=== PATIENT | male | born 1980 | race Caucasian/White ===

== ENCOUNTER 2016-11-03 20:34 | Emergency (ER) | payer OTHER ==
[~2016-11-03] VITALS: Ht 190.5 cm; Wt 110.9 kg
[2016-11-03 20:39] VITALS: BP 133/87; PULSE 67; RESP 16; O2SAT 100
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
--- NOTE | 2016-11-03 21:23 | DRSVH ---
PROCEDURE: X-RAY LEFT KNEE, THREE VIEWS ([id number]) INDICATIONS: injury TECHNIQUE: 3 views of the knee were acquired. COMPARISON: None. FINDINGS: Bones: No fractures or dislocations. No suspicious bony lesions. Minimal flattening of the right fe moral condylar articular surface. Soft tissues: No joint effusion. No suspicious soft tissue calcifications. IMPRESSION: No acute fractures. Minimal flattening of the right femoral condylar articular surface ma y represent a benign variant or chronic osteochondral injury. Dictated by: Valdez Vides M.D. on 11/03/2016 at 21:14 Approved by: Valdez Vides M.D. on 11/03/2016 at 21:15
--- NOTE | 2016-11-03 21:23 | DRSVH ---
PROCEDURE: X-RAY LEFT TIBIA/FIBULA, TWO VIEWS ([id number]) INDICATIONS: injury TECHNIQUE: 2 views of the tibia and fibula were acquired. COMPARISON: None. FINDINGS: Bones: No fractures or dislocations. No suspicious bony lesions. Soft tissues: No suspicious soft tissue calcifications or masses. IMPRESSION: No acute fractures. Dictated by: Valdez Vides M.D. on 11/03/2016 at 21:15 Approved by: Valdez Vides M.D. on 11/03/2016 at 21:15
--- NOTE | 2016-11-03 21:40 | ED.REPORT ---
HPI-Extremity Problem Lower Date of Service Nov 03, 2016 ED Provider: Kimmy Donnelly MD Nursing Notes Stated Complaint: LEFT KNEE PAIN Chief Complaint: Extremity Trauma Allergies: Coded Allergies: No Known Allergies (Unverified , 11/03/16) Scheduled PRN oxyCODONE-Acetaminophen 5-325 mg (oxyCODONE-Acetaminophen 5-325 mg) 1 Each Tablet 1-2 TAB PO Q6H PRN PRN For Pain General Time Seen by MD: 21:36 Physical Exam Initial Vital Signs Vital Signs (First) Date Time Temp Pulse Resp B/P Pulse Ox O2 Delivery O2 Flow Rate FiO2 11/03/16 20:39 36.6 67 16 133/87 100 Room Air Discharge & Departure Referrals: Rafat Quach MD (PCP) Kimmy Donnelly MD Nov 03, 2016 21:39
[2016-11-03] MEDS ORDERED: oxyCODONE-Acetamin 5-325 mg Tablet PO ONE (22:05)
[2016-11-03] MEDS ORDERED: _oxyCODONE/APAP 5-325 mg Tablet PO PRN (22:05)
[2016-11-03] MEDS ORDERED: OXYC1TAB24 PO (22:10)
[2016-11-03 22:38] VITALS: BP 132/83; PULSE 64; O2SAT 98
== END 2016-11-03 22:43 | disposition home or self-care (01) ==
LOC: SED 20:34
DX: S80.12XA Contusion of left lower leg, initial encounter (principal); V20.4XXA Motorcycle driver injured in collision with pedestrian or animal in traffic accident, initial encounter; Y92.410 Unspecified street and highway as the place of occurrence of the external cause; Y93.55 Activity, bike riding; Y99.8 Other external cause status